=== PATIENT | male | born 1995 | race Caucasian/White ===

== ENCOUNTER → 2024-04-25 | Outpatient (CLI) | LOC: M SOG 07:51 | PROVIDERS: ATTEND Orthopaedic Surgery | DX: M25.561 Pain in right knee (principal); M25.562 Pain in left knee ==

== ENCOUNTER → 2024-05-09 | Outpatient (CLI) | payer OTHER | LOC: M PLARAD 13:59 | PROVIDERS: ATTEND Orthopaedic Surgery | DX: M25.562 Pain in left knee (principal); M25.561 Pain in right knee; M67.51 Plica syndrome, right knee; M67.52 Plica syndrome, left knee ==